=== PATIENT | female | born 1960 | race Caucasian/White ===

== ENCOUNTER 2017-10-29 16:19 | Emergency (ER) | payer MEDICARE ==
[2017-10-29 17:21] LABS: Bilirubin Negative (Negative); Blood, Urine Moderate (Negative); Clarity Clear (Clear); Glucose, Urine (Dipstick) Negative (Negative); Leukocyte Negative (Negative); Nitrite Negative (Negative); Protein, Urine (Dipstick) Negative (Neg-Trace); Urobilinogen 0.2 mg/dL (0.2-1.0)
[2017-10-29 17:29] LABS: #Basophils 0.2 thou/uL (0.0-0.2); #Eosinphils 0.8 thou/uL (0.0-0.7); #Lymphocytes 2.5 thou/uL (1.20-3.40); #Monocytes 0.5 thou/uL (0.11-0.59); #Neutrophils 4.3 thou/uL (1.40-6.50); %Basophils 1.9 % (0.0-1.0); %Eosinophils 9.1 % (0.0-10.0); %Lymphocytes 29.9 % (21.0-51.0); %Monocytes 6.5 % (0.0-10.0); %Neutrophils 52.6 % (42.0-75.0); Hemoglobin 11.7 g/dL (12.0-16.0); Mean Corpuscular HGB CONC 33.2 g/dL (32.0-36.0); Mean Corpuscular Hemoglobin 29.9 pg (27.0-31.0); Mean Corpuscular Volume 90.2 fl (81.0-99.0); Mean Platelet Volume 8.4 fL (7.4-10.4); Platelet Count 201 thou/uL (130-400); RBC Distribution Width 14.7 % (11.5-14.5); Red Blood Cell (RBC) Count 3.92 mill/uL (4.20-5.40); White Blood Cell (WBC) Count 8.2 thou/uL (4.8-10.8)
[2017-10-29 17:30] LABS: Specific Gravity, Urine 1.024 (1.002-1.036)
[2017-10-29 17:32] LABS: Amphetamine Not Detected (NotDetected); Bacteria/HPF 1+ HPF (None Seen); Barbiturates Screen Not Detected (NotDetected); Benzodiazepine Screen Not Detected (NotDetected); Cocaine Metabolite Screen Not Detected (NotDetected); Medtox Control Line Valid? VALID (VALID); Methadone Not Detected (NotDetected); Methamphetamine Not Detected (NotDetected); Opiate Screen Not Detected (NotDetected); Oxycodone Screen Not Detected (NotDetected); Phencyclidine (PCP) Not Detected (NotDetected); RBC/HPF 0-3 HPF (0-3); Squamous Epithelial 0-3 HPF (0-3); THC/Cannabinoid Screen Detected (NotDetected); Tricyclic Screen Not Detected (NotDetected); WBC/HPF 0-3 HPF (0-3)
[2017-10-29 17:44] LABS: ALT (SGPT) 14 U/L (8-55); AST (SGOT) 14 U/L (5-34); Acetaminophen Less than 6.0 mcg/mL (10.0-30.0); Albumin 3.7 g/dL (3.5-5.0); Alcohol Less than 10 mg/dL (Less than 10); Alkaline Phosphatase 84 U/L (40-150); Anion Gap 17 mmol/L (10-20); BUN (Urea Nitrogen) 16 mg/dL (9.8-20.1); Bilirubin, Total 0.2 mg/dL (0.2-1.2); Calc. Creatinine Clearance 0 mL/min (70-130); Carbon Dioxide 19 mmol/L (22-29); Chloride 110 mmol/L (98-107); Estimated GFR-MDRD Greater than 90; Globulin 2.6 g/dL (2.4-3.5); Glucose 98 mg/dL (70-105); Potassium 4.1 mmol/L (3.5-5.1); Protein, Total 6.3 g/dL (6.0-8.3); Salicylate Less than 8.0 mg/dL (15.0-30.0); Sodium 142 mmol/L (136-145)
--- NOTE | 2017-10-29 19:09 | RAD ---
LEFT WRIST THREE VIEWS: History: Emergency exam. Wrist pain. Comparison: None. FINDINGS: There is a fifth metacarpal neck fracture without significant angulation. No other fracture is apprec iated. IMPRESSION: Poorly visualized fifth metacarpal neck fracture without significant angulation. POS: [facility]
[2017-10-29] MEDS ORDERED: Acetaminophen 500 MG TAB ONE (21:46)
[2017-10-29] MEDS ORDERED: Nicotine 14 MG PATCH TOP SCH (23:00)
[2017-10-30] MEDS ORDERED: hydrOXYzine 25 MG TAB ONE ×2 (01:12→09:08)
[2017-10-30] MEDS ORDERED: Acetaminophen 325 MG TAB ONE (09:05)
[2017-10-30] MEDS ORDERED: Ibuprofen 200 MG TAB ONE (09:06)
[2017-10-30] MEDS ORDERED: risperiDONE 0.5 MG TAB ONE (09:09)
== END 2017-10-30 12:45 | disposition home or self-care (01) ==
LOC: NAV ERS 16:19
DX: F32.3 Major depressive disorder, single episode, severe with psychotic features (principal); M79.1 Myalgia; F17.210 Nicotine dependence, cigarettes, uncomplicated; Z85.3 Personal history of malignant neoplasm of breast; Z85.41 Personal history of malignant neoplasm of cervix uteri; Z79.899 Other long term (current) drug therapy
CPT/HCPCS: 80053; 80306; 80307; 81003; 81015; 85025